=== PATIENT | male | born 1980 | race Caucasian/White ===

== ENCOUNTER 2022-05-23 09:47 | Emergency (ER) | payer OTHER ==
[2022-05-23 10:08] VITALS: BP 126/86; PULSE 74; TEMP 98.2; BMI 30.2
== END 2022-05-23 11:24 | disposition home or self-care (01) ==
LOC: JERFT 09:47
PROC: 0HQFXZZ Repair Right Hand Skin, External Approach (ICD-10-PCS; principal; 2022-05-23)
DX: S61.214A Laceration without foreign body of right ring finger without damage to nail, initial encounter (principal); W25.XXXA Contact with sharp glass, initial encounter
CPT/HCPCS: 99282-25

== ENCOUNTER 2022-05-30 15:26 | Emergency (ER) | payer OTHER ==
[2022-05-30 15:42] VITALS: BP 122/74; PULSE 74; RESP 18; TEMP 98; BMI 32.5
== END 2022-05-30 19:51 | disposition home or self-care (01) ==
LOC: JERFT 15:26
DX: Z48.02 Encounter for removal of sutures (principal)
CPT/HCPCS: 99281-25